=== PATIENT | female | born 2005 | race Caucasian/White ===

== ENCOUNTER 2024-06-21 23:16 | Emergency (ER) | payer BC, SELFPAY ==
[2024-06-21 23:17] VITALS: BP 137/85; PULSE 96; RESP 20; TEMP 36.6; O2SAT 100; BMI 25.9
[2024-06-21] MEDS: Ondansetron 4 MG/2 ML Vial IV (23:57)
[2024-06-21] MEDS: Lidocaine 2% Viscous15 ML UDC 15 ML PO (23:58)
[2024-06-21] MEDS: Mag Hydrox/Al Hydrox/Simeth 30 ML UDC PO (23:58)
[2024-06-21] MEDS: Famotidine 200 MG/20 ML MDV 20 MG in 0.9% Normal Saline (Pres. free 8 ML 300 MG IV (23:58)
[2024-06-22 00:09] LABS: Absolute Lymphocyte Count 2.21 X10^3/uL (0.83-4.51); Basophil# 0.04 X10^3/uL; Basophil% 0.2 % (0-1); Eosinophil# 0.01 X10^3/uL; Eosinophils% 0.1 % (0-5); Hematocrit 34.9 % (37-47); Lymphocyte # 2.21 X10^3/ul (0.83-4.51); Lymphocyte % 13.5 % (19-41); Mean Corp Hgb Conc 34.4 g/dL (32-36); Mean Corpuscular Hgb 30.2 pg (27.0-32.0); Mean Corpuscular Volume 87.7 fL (81-99); Mean Platelet Vol. 9.5 fl (6.2-12.0); Monocyte# 1.05 X10^3/uL; Monocyte% 6.4 % (0-10); NRBC Flagged by Analyzer 0 % (0-5); Neutrophil # 12.97 X10^3/uL (2.7-7.7); Neutrophil % 79.3 % (47-70); Platelet Count 298 K/mm3 (150-450); RBC Distribution Width CV 12.7 % (11.6-14.6); RBC Distribution Width SD 41.1 fl (35.1-43.9); Red Blood Count 3.98 M/mm3 (4.2-5.4); White Blood Count 16.4 K/mm3 (4.4-11.0)
--- NOTE | 2024-06-22 00:14 | EX.ED.DYSGE1 ---
HPI History of Present Illness Chief Complaint: GI Bleed Informant: patient and parent Narrative Narrative: Patient is a 19-year-old female with past medical history of anxiety and depression. She states that today after her game she developed some upper abdominal discomfort with bouts of nausea and vomiting and loose stool. She states the emesis appeared dark in color and this concerned her for internal bleeding. She states she does not take a blood thinner nor is her family history of bleeding disorder. She denies any history of gastritis but does state that she vapes and takes Excedrin more days than not and also drinks a decent amount of caffeine. She denies any blood or discoloration to her stool. However with her abdominal pain and concern for internal bleeding she presents to the hospital for evaluation [facility] Medical History Depression Anxiety Home Medications ?Medication ?Instructions ?Recorded ?Last Taken ?Type dextroamphetamine-amphetamine 10 1 tab PO DAILY 06/22/24 Unknown History mg tablet drospirenone 3 mg-ethinyl 1 tab PO DAILY 06/22/24 Unknown History estradiol 0.03 mg tablet (Anila) escitalopram oxalate 20 mg tablet 20 mg PO DAILY 06/22/24 Unknown History famotidine 20 mg tablet (Pepcid) 20 mg PO BID 30 days #60 tabs 06/22/24 Unknown Rx lisdexamfetamine 50 mg capsule 50 mg PO DAILY 06/22/24 Unknown History ondansetron 4 mg disintegrating 4 mg PO TID PRN nausea and 06/22/24 Unknown Rx tablet vomiting #21 tabs spironolactone 25 mg tablet 25 mg PO BID 06/22/24 Unknown History venlafaxine 150 mg 150 mg PO DAILY 06/22/24 Unknown History capsule,extended release 24 hr Allergy/AdvReac Type Severity Reaction Status Date / Time No Known Allergies Allergy Verified 06/21/24 23:16 Social History Smoking Status: Never smoker ROS ROS ED Constitutional Constitutional ED: Denies chills or fever(s) Eyes Eyes: Denies blurry vision or change in vision ENT ENT ED: Denies sore throat Cardiovascular Cardiovascular: Denies chest pain Respiratory/Chest Respiratory/Chest: Denies cough or dyspnea Gastrointestinal Gastrointestinal: Reports abdominal pain, diarrhea, nausea and vomiting; Denies melena Genitourinary Genitourinary ED: Denies dysuria or hematuria Musculoskeletal Musculoskeletal: Denies myalgias Integumentary Denies rash Neurologic Neurologic: Denies headache(s) Psychiatric Psychiatric: Reports anxiety Hematologic/Lymphatic Hematologic/Lymphatic: Denies easy bleeding or easy bruising EXAM Physical Exam Const Vital Signs: 06/21/24 23:17 06/22/24 01:47 Temperature 97.9 F 97.7 F L Temperature Source Oral Pulse Rate 96 81 Respiratory Rate 20 H 16 Blood Pressure 137/85 H 115/78 Blood Pressure Mean 102 90 Pulse Ox 100 99 Oxygen Delivery Method Room Air Positive well nourished and well developed General Appearance ED: well developed; Negative for pallor HEENT Reports moist mucous membranes HEENT Narrative: No tongue or lip swelling no oral lesions no airway edema or compromise No active bleeding or dried blood within the posterior pharynx No secondary findings to suggest infection Eyes PERRL and EOMs intact bilaterally General Eye ED: Negative for pale conjunctiva or scleral icterus Neck supple Neck Narrative: No crepitance noted No pain with external manipulation of the thyroid cartilage Resp normal respiratory effort and clear to auscultation bilaterally Cardio regular rate and regular rhythm GI non-tender, non-distended and no masses GI Narrative: Soft nontender nondistended with hyperactive bowel sounds no voluntary guarding or rigidity or pulsatile mass Auscultation: hyperactive bowel sounds Palpation: soft Narrative: Patient deferred Extremity normal to inspection Neuro oriented x3, CN's II-XII intact bilaterally and no sensory deficits noted Sensorium / Orientation: alert Motor Exam: strength 5/5 throughout Psych Mood & Affect: anxious Skin no rashes or lesions noted, no wounds and skin turgor normal General Skin Exam: Negative for jaundice or pallor MDM MDM MDM Narrative Medical decision making narrative: Patient arrived to the ER with stable vitals and a soft nonsurgical abdomen. She reported 1-2 bouts of nausea and vomiting with loose stool/diarrhea. She denies any history of bleeding disorder or blood thinner use. She states her emesis was discolored but she was unsure if it was truly blood and she states has been no dark or bloody stool. Differential diagnosis is for viral infection of the intestines such as [place] virus versus rotavirus. With her exposure at school there is concern for COVID versus influenza versus RSV. In order to ensure there is no signs of acute blood loss anemia blood work will be obtained. Also blood work should be ordered to check for potential elevation of the BUN or lactic acidosis. Lab work showed leukocytosis at 16.4 which is most likely stress response as her lactic acid is normal and she is afebrile. Her BUN is only slightly elevated at 21 which does not correlate with internal GI bleed. The patient's viral swabs were negative. With IV Pepcid and GI cocktail she had complete resolution of symptoms and had no further bouts of vomiting or report of dark or bloody stool in the ER. Therefore I feel this is most likely a combination of gastritis as the patient does take Excedrin as well as drink caffeine and vape along with potential stress or viral infection. But as overall workup is negative and she has had resolution of symptoms there is no need for further evaluation in the ER and she is otherwise safe for discharge History & Record Review Discussion w/independent historian: Patient and Family Lab Data Attestation: I reviewed the patient's lab results. Labs: Laboratory Results - last 24 hr 06/22/24 00:00 WBC 16.4 H RBC 3.98 L Hgb 12.0 Hct 34.9 L MCV 87.7 MCH 30.2 MCHC 34.4 RDW Std Deviation 41.1 RDW Coeff of Brooks 12.7 Plt Count 298 MPV 9.5 Immature Gran % (Auto) 0.500 Neut % (Auto) 79.3 H Lymph % (Auto) 13.5 L B[place]le % (Auto) 6.4 Eos % (Auto) 0.1 Baso % (Auto) 0.2 Absolute Neuts (auto) 13.0 H Absolute Lymphs (auto) 2.21 Nucleated RBC % 0 Sodium 136 Potassium 3.3 L Chloride 105 Carbon Dioxide 21.0 Anion Gap 10 BUN 21 H Creatinine 0.88 Estim Creat Clear Calc 103.29 Est GFR (MDRD) Af Amer 104 Est GFR (MDRD) Non-Af 86 BUN/Creatinine Ratio 23.9 H Glucose 136 H Lactic Acid 1.4 Calcium 9.2 Total Bilirubin 0.40 Direct Bilirubin 0.15 AST 19 ALT 17 Alkaline Phosphatase 49 Total Protein 6.8 Albumin 3.3 Globulin 3.5 Lipase 20 Discharge Plan Triage Chief Complaint: GI Bleed ED Provider: Lino Lowery Dx/Rx/DC Orders Clinical Impression: Nausea & vomiting, Gastritis, Anxiety and depression Instructions: ED Gastritis (Adult), ED Vomit Diarrhea Nonspec Adult Prescriptions: New ondansetron 4 mg tablet,disintegrating 4 mg PO TID PRN (Reason: nausea and vomiting) Qty: 21 0RF famotidine [Pepcid] 20 mg tablet 20 mg PO BID 30 Days Qty: 60 0RF No Action dextroamphetamine-amphetamine 10 mg tablet 1 tab PO DAILY drospirenone-ethinyl estradiol [Anila] 3-0.03 mg tablet 1 tab PO DAILY escitalopram oxalate 20 mg tablet 20 mg PO DAILY lisdexamfetamine 50 mg capsule 50 mg PO DAILY venlafaxine 150 mg capsule,extended release 24hr 150 mg PO DAILY spironolactone 25 mg tablet 25 mg PO BID Stand Alone Forms: ED Work / School Excuse Primary Care Provider: DELMI PEREIRA Referrals: DELMI PEREIRA [Other] Activity Restrictions/Additional Instructions: Please keep yourself well-hydrated and use the Zofran to help control further bouts of nausea and vomiting. If your vomiting becomes intractable despite taking the Zofran he develops severe abdominal pain or he develop dark black stool please return for repeat evaluation Print Language: Congolese Disposition Disposition: Home, Self Care Discharge Date/Time: 06/22/24 01:48
[2024-06-22 00:26] LABS: AST(SGOT) 19 U/L (15-37); Alanine Aminotransfer ALT/SGPT 17 U/L (13-56); Albumin, Serum 3.3 g/dL (3.2-5.0); Alkaline Phosphatase 49 U/L (45-117); Anion Gap 10 (5-15); BUN 21 mg/dL (7-18); BUN/Creat Ratio 23.9 RATIO (10-20); Bilirubin, Direct 0.15 mg/dL (0.00-0.30); Calcium,Total 9.2 mg/dL (8.5-10.1); Chloride 105 mmol/L (98-107); Creatinine, Serum 0.88 mg/dL (0.55-1.02); EST Glomerular Filtration Rate 86 mL/min (>60); Est Glom Filt Rate - Afr Amer 104 mL/min (>60); Estimated Creatinine Clearance 103.29 ml/min; Globulin 3.5 g/dL (2.2-4.2); Glucose 136 mg/dL (74-106); Lipase 20 U/L (13-75); Potassium 3.3 mmol/L (3.5-5.1); Protein, Total 6.8 g/dL (6.4-8.2); Sodium Level 136 mmol/L (136-145)
[2024-06-22 00:33] LABS: Lactic Acid 1.4 mmol/L (0.4-1.9)
[2024-06-22 01:47] VITALS: BP 115/78; PULSE 81; RESP 16; TEMP 36.5; O2SAT 99
== END 2024-06-22 01:48 | disposition home or self-care (01) ==
PROVIDERS: Emergency Provider Emergency Medicine; Visit Provider Emergency Medicine
DX: K29.70 Gastritis, unspecified, without bleeding (principal); F32.A Depression, unspecified; F41.9 Anxiety disorder, unspecified; F17.290 Nicotine dependence, other tobacco product, uncomplicated; Z79.899 Other long term (current) drug therapy
CPT/HCPCS: 80048; 80076; 83605; 83690; 85025; 87631; 96374; 96375; 99284; A4216; J2405; J3490